=== PATIENT | female | born 1935 | race Caucasian/White ===

== ENCOUNTER 2017-11-26 01:01 | Outpatient (CLI) | payer MEDICARE, OTHER, SELFPAY ==
--- NOTE | 2017-11-26 10:30 | DI.MRI_ITS ---
SYMPTOMS/DIAGNOSIS: BACK PAIN, M54.9, FORAMINAL STENOSIS, M99.83, RIGHT LEG PAIN, M79.604, WEAKNESS, R53.1 MRI OF THE LUMBAR SPINE: Routine noncontrast MRI of the lumbar spine was performed. Comparison is . The conus medullaris has a normal appearance and location. At L5-S1, there are degenerative changes at the facets. No central spinal canal stenosis is seen. There is disc desiccation. Endplate degenerative signal changes are present. There is marked right neural foraminal stenosis with impingement of the exiting nerve root. There is also marked left neural foraminal stenosis with impingement of the exiting nerve root. At L4-L5, there is disc desiccation. Mild endplate degenerative signal changes are present. No focal disc herniation or central spinal canal stenosis is seen. Degenerative changes of the facets are present bilaterally. No significant right neural foraminal stenosis is seen. There is marked left neural foraminal stenosis with impingement of the exiting nerve root. At L3-L4, there is a mild diffuse disc bulge. No focal disc herniation or central spinal canal stenosis is seen. There are degenerative changes of the facets present. Degenerative endplate signal changes are seen. Disc desiccation is present. On the right, there is moderately severe neural foraminal stenosis compressing the exiting nerve root. On the left, there is mild neural foraminal narrowing, but no significant compression of the nerve root. At L2-L3, there is disc desiccation. Endplate degenerative signal changes are present. There are degenerative changes of the facets. No focal disc herniation or central spinal canal stenosis is seen. There is moderately severe right neural foraminal narrowing, but no significant nerve root compression is seen. No significant left neural foraminal stenosis is present. At L1-L2, there is disc desiccation. Endplate degenerative signal changes are present. There is a mild diffuse disc bulge. There may be a mild central disc herniation. No significant central spinal canal stenosis is seen. No right neural foraminal stenosis is present. There is mild narrowing of the left neural foramen, but no significant nerve root compression is present. Apart from the degenerative endplate signal change, the marrow signal is within normal limits. IMPRESSION: Multilevel degenerative changes throughout the lumbar spine resulting in multilevel bilateral neural foraminal stenosis, as described above.
--- NOTE | 2017-11-26 10:40 | DI.RAD_ITS ---
SYMPTOMS/DIAGNOSIS: ASSESS FOR ABNORMAL MOTION AT L4-5, BACK PAIN, M54.9, FORAMINAL STENOSIS, M90.93, RIGHT LEG PAIN, M79.604, WEAKNESS, R53.1 LUMBAR SPINE: AP, lateral and bilateral oblique flexion and extension views were obtained. There are five lumbar-type vertebral bodies. No spondylolysis is seen. There is grade 1 pseudospondylolisthesis of L4 on L5. At all levels of the lumbar spine, there is disc space narrowing, vacuum discs and endplate osteophytes present. There are degenerative changes of the facets at all levels of the lumbar spine. No acute fractures or subluxations are seen. No subluxation is seen with flexion or extension. There is calcification of the abdominal aorta noted. Note is made of a right total hip replacement. IMPRESSION: Moderately severe degenerative changes in the lumbar spine.
== END 2017-11-26 01:21 ==
PROVIDERS: PCP Emergency Medicine; Visit Provider Neurological Surgery
DX: M54.5 Low back pain (principal); M99.73 Connective tissue and disc stenosis of intervertebral foramina of lumbar region; M79.604 Pain in right leg; R29.898 Other symptoms and signs involving the musculoskeletal system
CPT/HCPCS: 72110; 72148

== ENCOUNTER 2017-12-10 02:06 | Outpatient (CLI) | payer MEDICARE, OTHER, SELFPAY ==
[2017-12-10 11:35] LABS: Abs Immature Grans 0.01 k/cumm (0.0-0.09); Absolute Basophil Count 0.05 k/cumm (0.0-0.2); Absolute Lymphocyte Count 1.28 k/cumm (1.2-3.4); Absolute Neutrophil Count 3.53 k/cumm (1.2-6.7); Basophils % 0.9; Eosinophils % 3.6; HCT 37.8 % (36.0-46.0); HGB 12.8 g/dL (12.0-15.5); Immature Grans % 0.2; Mean Corp. HGB Concentration 33.9 g/dL (32.0-36.0); Mean Corpuscular Hemoglobin 30.1 pg (27.0-33.0); Mean Corpuscular Volume 88.9 fL (80-95); Mean Platelet Volume 9.4 fL (8.0-11.0); Neutrophils % 63.3; Platelet Count 198 x1000/uL (130-400); RBC 4.25 m/cumm (4.00-5.20); RBC Distribution Width 13.1 % (11.7-14.6); White Blood Cell Count 5.57 k/cumm (4.4-10.8)
[2017-12-10 12:44] LABS: BUN 22 mg/dL (7-18); CREATININE 0.85 mg/dL (0.55-1.02); Calcium 8.4 mg/dL (8.5-10.1); Chloride 105 mmol/L (98-107); Glucose 95 mg/dL (70-100); Potassium 3.6 mmol/L (3.5-5.1); Sodium 144 mmol/L (136-145)
== END 2017-12-10 02:26 ==
PROVIDERS: PCP Emergency Medicine; Visit Provider Emergency Medicine
DX: Z01.818 Encounter for other preprocedural examination (principal); R69 Illness, unspecified
CPT/HCPCS: 36415; 80048; 85025

== ENCOUNTER 2018-08-10 12:36 | Emergency (ER) | payer MEDICARE, OTHER, SELFPAY ==
[2018-08-10] VITALS (28 sets, daily range): BP systolic 95–162; BP diastolic 26–68; PULSE 49–71; RESP 15–32; TEMP 36.8; O2SAT 88–98
--- NOTE | 2018-08-10 12:58 | DI.CT_ITS ---
SYMPTOMS/DIAGNOSIS: ALTERED MENTAL STATUS; HYPOXIA, ? PULMONARY EMBOLUS NONCONTRAST HEAD CT: There are no prior comparison exams. No intracranial hemorrhage, mass or infarct is seen. There is no significant atrophy or evidence of white matter changes. There is no evidence of skull fracture or sinus opacification. The mastoid air cells appear clear. IMPRESSION: Negative head CT. CHEST CT FOR PULMONARY EMBOLISM: The aorta and pulmonary arteries are well opacified with IV contrast. There is no evidence of pulmonary emboli or aortic dissection. There is mild aortic calcification and mild coronary artery calcifications. There are mild fibrotic changes, greater at the lung bases. No infiltrate, pleural or pericardial effusion is seen. There is no evidence of a pneumothorax or thoracic compression fractures. IMPRESSION: No evidence of pulmonary emboli or other acute abnormality.
--- NOTE | 2018-08-10 13:04 | ED.GENADUL_ITS ---
Discharge Plan Disposition Patient Disposition: HOME Condition: Stable Discharge Details Chief Complaint: GenMedical Clinical Impression: Light-headed Primary Care Provider: Rm Prieto ED Provider: Kaushal Mehta Home Meds and New Rx's Prescriptions: No Action celecoxib [Celebrex] 200 mg capsule 200 mg PO DAILY Qty: 90 RF: 0 hydrochlorothiazide 25 mg tablet 25 mg PO DAILY Qty: 90 RF: 3 potassium chloride 10 mEq capsule, extended release 10 meq PO BID Qty: 120 RF: 6 Zyrtec 10 MG capsule 10 mg PO DAILY RF: 0 cholecalciferol (vitamin D3) [Vitamin D3] 2,000 UNIT tablet 2,000 unit PO DAILY RF: 0 valacyclovir [Valtrex] 1,000 MG tablet 2,000 mg PO BID Qty: 4 RF: 4 ranitidine HCl 150 MG capsule 150 mg PO BID Qty: 180 RF: 3 aspirin [Aspir-Low] 81 MG tablet,delayed release (DR/EC) 81 mg PO DAILY RF: 0 biotin 300 MCG tablet 5,000 mcg PO DAILY RF: 0 ascorbic acid (vitamin C) [Vitamin C] 500 MG tablet 500 mg PO DAILY RF: 0 Discharge Instructions Instructions: Lightheadedness (ED) Additional Instructions: follow up with your primary care provider within a week if you feel you are becoming more ill, have chest pain/pressure, weakness on one side of the body return to the emergency department for reevaluation Medical Decision Making 82 yo female with hx of htn, gerd, hd, who comes in with cc of feeling lightheaded and waves of feeling de ja vu. She states she started abx for a uti on Friday and yesterday started to have these waves of feeling lightheaded and thinks she may have had loc yesterday. She also describes during this feelings of de ja vu as if she can remember things in the past but is vague on exactly what she means. She denies unilateral weakness, numbness, vision changes, chest pain, abd pain, has had nausea without vomit. She has normal tele with these symptoms so doubt arrythmia. Unclear cause for her symptoms, doubt cva given nih of 0. Will eval for electrolyte abnormaliteis and also obtian head ct to eval for possible sdh. She has no chest pain or pressure so doubt acs pt's o2 sat after initial eval would decresae in the low 90's without a clear cause, has clear lungs. Will obtain cta to eval for possible pe given lightheaded symptoms and wells score is moderate pt remains stable, imaging unremarkable as is lab work. she continues to have NIH of 0 and walking under her own power without difficulties. Feel she is stable for d/c, will have her f/u with her pcp within a week and return precautions given. O2 saturation now on room air is 96% Differential Diagnosis electrolyte abnormality, anemia, uti Medical Records Medical records reviewed: Yes I reviewed the patient's medical records. Imaging Data Radiologic Study: Attestation: I personally reviewed and interpreted this imaging study as follows: Imaging: CT Scan Radiologist's impression: no acute findings on head ct per dr. nair Radiologic Study #2: Attestation: I personally reviewed and interpreted this imaging study as follows: Imaging: CT Scan Radiologist's impression: no acute findings on chest ct per dr. nair Lab Data Lab results reviewed: Yes I reviewed the patient's lab results. ECG Data Attestation: I personally reviewed and interpreted this ECG (s) as follows: Prior ECG tracings: available for review Interpretation: sinus bradycardia, rate of 53, pr 156, no acute st t wave ischemic changes HPI General Mode of arrival: ambulatory . Date/Time Provider Initiated Documentation: 08/10/18 12:44 . Limitations to Documentation: no limitations . Information obtained by: patient . History of Present Illness 82 year old F presents to the emergency department with the chief complaint of lightheaded, described as moderate, Patient reports no radiation. Patient started experiencing this day(s) No relieving factors improve symptom(s), No exacerbating factors reported . Patient notes other (nausea). Patient did receive the following treatments prior to arrival, none Related Data Home Medications Medication Instructions Recorded Confirmed Zyrtec 10 mg PO DAILY 08/18/12 08/10/18 cholecalciferol (vitamin D3) 2,000 unit PO DAILY 08/09/15 08/10/18 [Vitamin D3] valacyclovir [Valtrex] 2,000 mg PO BID #4 tab-cap 12/27/15 08/10/18 ranitidine HCl 150 mg PO BID #180 tab-cap 03/26/16 08/10/18 ascorbic acid (vitamin C) [Vitamin 500 mg PO DAILY 07/29/17 08/10/18 C] aspirin [Aspir-Low] 81 mg PO DAILY tab-cap 07/29/17 08/10/18 biotin 5,000 mcg PO DAILY 07/29/17 08/10/18 celecoxib 200 mg capsule 200 mg PO DAILY #90 tab-cap 12/23/17 08/10/18 hydrochlorothiazide 25 mg tablet 25 mg PO DAILY #90 tab-cap 12/23/17 08/10/18 potassium chloride ER 10 mEq 10 meq PO BID #120 tab-cap 12/23/17 08/10/18 capsule,extended release Previous Rx's Medication Instructions Recorded celecoxib 200 mg capsule 200 mg PO DAILY #90 tab-cap 12/23/17 hydrochlorothiazide 25 mg tablet 25 mg PO DAILY #90 tab-cap 12/23/17 potassium chloride ER 10 mEq 10 meq PO BID #120 tab-cap 12/23/17 capsule,extended release Allergies Allergy/AdvReac Type Severity Reaction Status Date / Time codeine Allergy Mild Verified 12/23/17 08:58 hydromorphone Allergy Mild Verified 12/23/17 08:58 sulfamerazine Allergy Mild Verified 12/23/17 08:58 General Stated Complaint: GenMedical MARK: 3 Review of Systems Review of Systems All systems reviewed & are unremarkable except as noted in HPI and below Constitutional Denies chills, Denies fever(s) and Denies weakness Cardiovascular Denies chest pain and Denies dyspnea Respiratory Denies cough and Denies dyspnea Gastrointestinal Denies abdominal pain and Denies vomiting Musculoskeletal Denies joint swelling Neurologic Denies weakness PFSH Surgical History Extraction of cataract Oophrectomy, Both Total replacement of hip (~09/2015) Vaginal hysterectomy Family History Mother Neoplasm Father No problems noted. Grandfather No problems noted. Grandfather Heart disease Grandmother Neoplasm Grandmother Essential hypertension Son No problems noted. Daughter No problems noted. Daughter No problems noted. Social History Smoking/Tobacco Use Status: Former Tobacco Use Quit Date: 02/24/82 Alcohol Intake: never Drug use: Never Substance use type: does not use Duration: 45-60 minutes/day Frequency: 3-4 times per week Sana/Anglican: Jehovah'S Witness Special sana needs: No Do you feel safe at home: Yes Do you feel safe in your relationship?: Yes Exam Const General: no acute distress Orientation: alert HENNY Head: normal to inspection Ears: external ears normal General nose exam: external nose normal Mouth: moist mucous membranes Eyes General: appearance normal, both eyes and all related structures Neck Neck: normal visual inspection Resp Effort & Inspection: normal respiratory effort and able to speak in complete sentences Cardio Rate: regular rate Skin General skin exam: no rashes or lesions noted Neuro General: alert and oriented x3 Extrem General: normal to inspection Psych Mental Status: mental status grossly normal Course Vital Signs Temperature 36.8 C 08/10/18 12:47 Pulse 56 L 08/10/18 12:47 Respiratory Rate 18 08/10/18 12:47 Blood Pressure 156/44 H 08/10/18 12:47 Pulse Oximetry 96 08/10/18 12:47 Temperature 36.8 C 08/10/18 12:47 Temperature Source Tympanic 08/10/18 12:47 Pulse 56 L 08/10/18 12:47 Respiratory Rate 18 08/10/18 12:47 Blood Pressure 156/44 H 08/10/18 12:47 Blood Pressure Position Sitting 08/10/18 12:47 Pulse Oximetry 96 08/10/18 12:47 Oxygen Delivery Method Room Air 08/10/18 12:47 Oxygen Flow Rate 0 08/10/18 12:47 Pain Level 0 08/10/18 12:47
[2018-08-10] MEDS: Normal Saline 1,000 ML 1000 ML IV (13:17)
[2018-08-10] MEDS: Ondansetron 4 MG/2 ML VIAL IVP (13:17)
[2018-08-10 13:27] LABS: Abs Immature Grans 0.01 k/cumm (0.0-0.09); Absolute Basophil Count 0.04 k/cumm (0.0-0.2); Absolute Eosinophil Count 0.06 k/cumm (0.0-0.7); Absolute Lymphocyte Count 0.66 k/cumm (1.2-3.4); Absolute Monocyte Count 0.35 k/cumm (0.11-0.7); Absolute Neutrophil Count 6.29 k/cumm (1.2-6.7); Basophils % 0.5; Eosinophils % 0.8; HCT 39.2 % (36.0-46.0); HGB 13.2 g/dL (12.0-15.5); Immature Grans % 0.1; Lymphocytes % 8.9; Mean Corp. HGB Concentration 33.7 g/dL (32.0-36.0); Mean Corpuscular Hemoglobin 29.8 pg (27.0-33.0); Mean Corpuscular Volume 88.5 fL (80-95); Mean Platelet Volume 9.5 fL (8.0-11.0); Monocytes % 4.7; Platelet Count 188 x1000/uL (130-400); RBC 4.43 m/cumm (4.00-5.20); RBC Distribution Width 13.2 % (11.7-14.6); White Blood Cell Count 7.41 k/cumm (4.4-10.8)
[2018-08-10 13:57] LABS: ALT 19 U/L (12-78); AST 20 U/L (15-37); Albumin 3.8 g/dL (3.4-5.0); Alkaline Phosphatase 166 U/L (46-116); Anion Gap 10.7 mmol/L (3-11); BUN 21 mg/dL (7-18); Bilirubin, Total 0.7 mg/dL (0.2-1.0); CO2 27.3 mmol/L (21.0-32.0); CREATININE 0.84 mg/dL (0.55-1.02); Calcium 8.8 mg/dL (8.5-10.1); Chloride 102 mmol/L (98-107); Glucose 112 mg/dL (70-100); Magnesium 2.1 mg/dL (1.8-2.4); Potassium 3.7 mmol/L (3.5-5.1); Sodium 140 mmol/L (136-145); Total Protein 7.4 g/dL (6.4-8.2)
[2018-08-10 14:18] LABS: Troponin I < 0.02 ng/mL (0.00-0.06)
[2018-08-10] MEDS: Omnipaque 350 MG/ML 100 ML BTL IV (14:53)
== END 2018-08-10 15:54 | disposition home or self-care (01) ==
PROVIDERS: Emergency Provider Emergency Medicine; PCP Emergency Medicine
DX: R42 Dizziness and giddiness (principal); I10 Essential (primary) hypertension
CPT/HCPCS: 36415; 71275; 80053; 93005; 96361; 96374; 99285; 70450; 83735; 83880; 84484; 85025; 93010; J2405; J3490

== ENCOUNTER 2018-09-28 06:07 | Outpatient (CLI) | payer MEDICARE, OTHER, SELFPAY ==
--- NOTE | 2018-09-28 13:05 | DI.RAD_ITS ---
SYMPTOM/DIAGNOSIS: LT HIP PAIN, M25.552 LEFT HIP AND PELVIS: There is mild spurring at the superior acetabulum. A right hip prosthesis is noted. There is hardware at the L 4-5 level. IMPRESSION: Mild degenerative changes of the left hip.
== END 2018-09-28 06:27 ==
PROVIDERS: PCP Emergency Medicine; Visit Provider Emergency Medicine
DX: M25.552 Pain in left hip (principal); M16.12 Unilateral primary osteoarthritis, left hip
CPT/HCPCS: 73502

== ENCOUNTER → 2018-11-05 09:43 | Outpatient (BNVA) | payer MEDICARE, OTHER, SELFPAY | PROVIDERS: PCP Emergency Medicine; Referring Provider Emergency Medicine; Visit Provider Student in an Organized Health Care Education/Training Program | DX: M70.62 Trochanteric bursitis, left hip (principal); M25.552 Pain in left hip; M16.32 Unilateral osteoarthritis resulting from hip dysplasia, left hip; Z96.641 Presence of right artificial hip joint | CPT/HCPCS: 20610; 99203; 99214; J1040 ==

== ENCOUNTER → 2018-12-18 09:46 | Outpatient (BNVA) | payer MEDICARE, OTHER, SELFPAY | PROVIDERS: PCP Emergency Medicine; Referring Provider Emergency Medicine; Visit Provider Student in an Organized Health Care Education/Training Program | DX: M70.62 Trochanteric bursitis, left hip (principal) | CPT/HCPCS: 99213 ==

== ENCOUNTER 2019-07-26 03:36 | Outpatient (CLI) | payer MEDICARE, OTHER, SELFPAY ==
[2019-07-26 11:55] LABS: Anion Gap 6.2 mmol/L (3-11); BUN 24 mg/dL (7-18); CO2 29.8 mmol/L (21.0-32.0); CREATININE 1.05 mg/dL (0.55-1.02); Chloride 102 mmol/L (98-107); Estimated GFR 50.18 (mL/min/1.73m2); Glucose 103 mg/dL (74-106); Potassium 4.5 mmol/L (3.5-5.1); Sodium 138 mmol/L (136-145)
== END 2019-07-26 03:56 ==
PROVIDERS: PCP Emergency Medicine; Visit Provider Emergency Medicine
DX: I10 Essential (primary) hypertension (principal)
CPT/HCPCS: 36415; 80048